=== PATIENT | male | born 1995 ===

== ENCOUNTER 2019-02-22 22:24 | Emergency (ER) | payer SELFPAY ==
[2019-02-22 22:44] VITALS: PULSE 80
--- NOTE | 2019-02-23 00:13 | ED PDOC ---
History of Present Illness History of Present Illness: 23 years old male with history of asthma presents to ER for evaluation of flu- like symptoms that started as upper respiratory infection with runny nose and cough 2 weeks ago. Patient reports 1 week ago he developed severe coughing with yellow phlegm and sometimes blood tinged but no uriel blood. He reports associated subjective fever, chills, intermittent episode of vomiting, diarrhea and bodyaches. Patient states he has been taking OTC medicine with minimal relief and last time was this morning taking Tylenol. He states his last asthma attack was 8 years ago. Patient denies any known sick contact or recent travel. PMD: None provided HPI: Influenza Time Seen by Provider: 02/22/19 23:21 Chief Complaint: Cough, Cold, Congestion Chief Complaint (Provider): Cough, Cold, Congestion History Per: Patient Exam Limitations: no limitations Onset/Duration Of Symptoms: Other (two weeks) Symptoms include: fever (subjective), bodyaches, cough (with yellow phlegm), other (Vomiting and diarrhea) Past Medical History Reviewed: Historical Data, Nursing Documentation, Vital Signs Vital Signs: Last Vital Signs Temp 99.2 F 02/22/19 22:41 Pulse 80 02/22/19 22:41 Resp 19 02/22/19 22:41 BP 136/87 02/22/19 22:41 Pulse Ox 98 02/22/19 22:41 Primary Care Provider: FAMILY PROVIDER,NO - Medical History PMH: Asthma - Surgical History Surgical History: Appendectomy, Hernia Repair Other surgeries: Right ankle fracture and left hand surgery - Family History Family History: States: Other Other Family History: Asthma - Social History Current smoker - smoking cessation education provided: Yes Alcohol: None Drugs: Denies - Home Medications Home Medications: Ambulatory Orders Medication Instructions Recorded Benzonatate [Tessalon Perle] 100 mg PO TID #20 capsule 02/23/19 Ibuprofen [Motrin Tab] 600 mg PO Q6 #30 tab 02/23/19 predniSONE [predniSONE Tab] 60 mg PO DAILY #9 tab 02/23/19 - Allergies Allergies/Adverse Reactions: Allergies Allergy/AdvReac Type Severity Reaction Status Date / Time No Known Allergies Allergy Verified 02/22/19 22:44 Review of Systems ROS Statement: Except As Marked, All Systems Reviewed And Found Negative Constitutional: Positive for: Fever (subjective), Chills ENT: Positive for: Nose Discharge Respiratory: Positive for: Cough (with yellow phlegm) Gastrointestinal: Positive for: Vomiting, Diarrhea Physical Exam - Reviewed Nursing Documentation Reviewed: Yes Vital Signs Reviewed: Yes - Physical Exam Appears: Positive for: No Acute Distress (tired appearing) Head Exam: Positive for: ATRAUMATIC, NORMOCEPHALIC Skin: Positive for: Warm, Dry Eye Exam: Positive for: EOMI, PERRL ENT: Positive for: Pharynx Is (clear), Other (Boggy nasal membrane) Neck: Positive for: Painless ROM, Supple. Negative for: Pain On Movement Of Neck Cardiovascular/Chest: Positive for: Regular Rate, Rhythm. Negative for: Murmur Respiratory: Positive for: Normal Breath Sounds (clear to auscultation bilaterally). Negative for: Rales, Rhonchi, Wheezing Gastrointestinal/Abdominal: Positive for: Soft. Negative for: Tenderness Back: Positive for: Normal Inspection. Negative for: Muscle Spasm Extremity: Positive for: Normal ROM. Negative for: Deformity Lymphatic: Negative for: Adenopathy Neurological/Psych: Positive for: Awake, Alert, Oriented (x3), Mood/Affect (Anxious) Medical Decision Making Medical Decision Making: Time: 2343 Initial impression: flu-like illness. Differential includes but not limited to pneumonia, bronchitis or viral syndrome. Initial plan: --CXR --Toradol 30 mg IM --Tylenol 325 mg PO --Influenza A B 0000 Patient signed out to Dr. Hendrickson, pending flu swabs. Scribe Attestation: Documented by Ruth Cui, acting as a scribe for Nano Dominguez MD. Provider Scribe Attestation: All medical record entries made by the Scribe were at my direction and personally dictated by me. I have reviewed the chart and agree that the record accurately reflects my personal performance of the history, physical exam, medical decision making, and the department course for this patient. I have also personally directed, reviewed, and agree with the discharge instructions and disposition. - ECG O2 Sat by Pulse Oximetry: 98 (RA) Pulse Ox Interpretation: Normal Disposition - Clinical Impression Clinical Impression: Common cold, Bronchitis - Patient ED Disposition Is Patient to be Admitted: Transfer of Care - Disposition Referrals: [facility] [place] [Outside] [facility] [Outside] Disposition: Transfer of Care Disposition Time: 00:00 Condition: GOOD Prescriptions: Benzonatate [Tessalon Perle] 100 mg PO TID #20 capsule Ibuprofen [Motrin Tab] 600 mg PO Q6 #30 tab predniSONE [predniSONE Tab] 60 mg PO DAILY #9 tab Instructions: Viral Upper Respiratory Infection, Adult (DC), Acute Bronchitis Forms: [employer] ([place]), [facility] ED School/Work Excuse Print Language: AMERICAN Patient Signed Over To: Shahbaz Hendrickson (pending flu swab)
--- NOTE | 2019-02-23 00:32 | ED PDOC ---
- ECG O2 Sat by Pulse Oximetry: 98 (RA) Pulse Ox Interpretation: Normal Medical Decision Making Medical Decision Makin Patient endorsed by Dr. Dominguez, pending flu swabs and final disposition. 0058 Swab negative. Patient is stable for discharge home. Will treat for acute viral bronchitis. Very well appearing upon discharge. Scribe Attestation: Documented by Ruth Cui, acting as a scribe for Shahbaz Hendrickson MD. Provider Scribe Attestation: All medical record entries made by the Scribe were at my direction and personally dictated by me. I have reviewed the chart and agree that the record accurately reflects my personal performance of the history, physical exam, medical decision making, and the department course for this patient. I have also personally directed, reviewed, and agree with the discharge instructions and disposition. Disposition - Clinical Impression Clinical Impression: Common cold, Bronchitis - POA Present On Arrival: None - Disposition Referrals: [facility] [place] [Outside] [facility] [Outside] Disposition: Routine/Home Disposition Time: 00:58 Condition: GOOD Prescriptions: Benzonatate [Tessalon Perle] 100 mg PO TID #20 capsule Ibuprofen [Motrin Tab] 600 mg PO Q6 #30 tab predniSONE [predniSONE Tab] 60 mg PO DAILY #9 tab Instructions: Viral Upper Respiratory Infection, Adult (DC), Acute Bronchitis Forms: [facility] (Monegasque), [facility] ED School/Work Excuse Print Language: FRENCH
[2019-02-23 04:30] VITALS: BP 111/86; RESP 16; TEMP 98.9
[2019-02-23 04:33] VITALS: O2SAT 98
--- NOTE | 2019-02-23 08:16 | RAD ---
Date of service: 02/22/2019 HISTORY: cough COMPARISON: No prior. TECHNIQUE: Chest PA and lateral views FINDINGS: LUNGS: No active pulmonary disease. PLEURA: No significant pleural effusion identified. No pneumothorax apparent. CARDIOVASCULAR: No aortic atherosclerotic calcification present. Normal cardiac size. No pulmonary vascular congestion. OSSEOUS STRUCTURES: No significant abnormalities. VISUALIZED UPPER ABDOMEN: Normal. OTHER FINDINGS: None. IMPRESSION: No acute cardiopulmonary disease appreciated.
== END 2019-02-23 01:15 | disposition home or self-care (01) ==
LOC: H.ER 22:24
DX: J40 Bronchitis, not specified as acute or chronic (principal); J00 Acute nasopharyngitis [common cold]
CPT/HCPCS: 71046; 87804; 96372; 99282; J1885